=== PATIENT | female | born 1950 | race Hispanic/Latino ===

== ENCOUNTER 2017-01-06 16:04 | Emergency (ER) | payer MEDICARE ==
[2017-01-06 16:28] VITALS: BP 107/65; PULSE 73; RESP 18; TEMP 97.7; O2SAT 96
--- NOTE | 2017-01-06 16:37 | ED PDOC ---
Arrival/HPI - General Chief Complaint: Trauma Time Seen by Provider: 01/06/17 16:31 Historian: Patient - History of Present Illness Narrative History of Present Illness (Text): 01/06/17 16:32 This 66 yo female presents to this ED c/o right ankle pain, right knee pain, and lower back pain x [employer]. Patient stated while walking on side way, she tripped on uneven surface, causing her to fall forward. She was able to place hands down to break fall. Denies wrist pain, elbow pain, head injury, neck pain , sob, cp, abdominal pain, dizziness, diplopia, dyasthria, syncope, hip pain, hematuria, or n/v. Time/Duration: Prior to Arrival Symptom Onset: Sudden Quality: Aching Context: Pedestrian Past Medical History - Provider Review Nursing Documentation Reviewed: Yes - Infectious Disease Hx of Infectious Diseases: None - Genitourinary/Gynecological Hx Uterine Cancer: Yes - Psychiatric Hx Substance Use: No - Surgical History Hx Appendectomy: Yes Hx Cholecystectomy: Yes Hx Hysterectomy: Yes Hx Joint Replacement: Yes (b/l knees) Family/Social History - Physician Review Nursing Documentation Reviewed: Yes Family/Social History: No Known Family HX Smoking Status: Never Smoked Hx Alcohol Use: No Hx Substance Use: No Allergies/Home Meds Allergies/Adverse Reactions: Allergies levofloxacin [From Levaquin] Allergy (Verified 01/06/17 16:20) ANAPHYLAXIS Review of Systems - Review of Systems Constitutional: Normal. absent: Fatigue, Weight Change, Fevers Eyes: Normal ENT: Normal Respiratory: Normal. absent: SOB, Cough Cardiovascular: Normal. absent: Chest Pain, Palpitations Gastrointestinal: Normal. absent: Abdominal Pain, Nausea, Vomiting Genitourinary Female: Normal. absent: Hematuria Musculoskeletal: Back Pain, Other (See HPI) Skin: Normal, Other (small scattered abraion lower extremity). absent: Laceration Neurological: Normal Endocrine: Normal Hemo/Lymphatic: Normal Psychiatric: Normal Physical Exam Vital Signs Temp Pulse Resp BP Pulse Ox 01/06/17 16:10 97.7 F 73 18 107/65 96 Temperature: Afebrile Blood Pressure: Normal Pulse: Regular Respiratory Rate: Normal Appearance: Positive for: Well-Appearing, Non-Toxic, Comfortable Pain Distress: None Mental Status: Positive for: Alert and Oriented X 3 - Systems Exam Head: Present: Atraumatic, Normocephalic Pupils: Present: PERRL Extroacular Muscles: Present: EOMI Conjunctiva: Present: Normal Mouth: Present: Moist Mucous Membranes Neck: Present: Normal Range of Motion Respiratory/Chest: Present: Clear to Auscultation, Good Air Exchange. No: Respiratory Distress, Accessory Muscle Use Cardiovascular: Present: Regular Rate and Rhythm, Normal S1, S2. No: Murmurs Abdomen: Present: Normal Bowel Sounds. No: Tenderness, Distention, Peritoneal Signs Back: Present: Normal Inspection Upper Extremity: Present: Normal Inspection, Normal ROM, NORMAL PULSES, Neurovascularly Intact, Capillary Refill < 2s. No: Cyanosis, Edema Lower Extremity: Present: NORMAL PULSES, Tenderness ((+) mild right anterior ankle joint swelling, and mild tendernes. No deformity, Drawer test was negative. Tobar test was negative.), Swelling, Neurovascularly Intact, Capillary Refill < 2 s. No: Edema, CALF TENDERNESS, Cecilio's Sign, Erythema, Deformity, Temperature Abnormalties Neurological: Present: GCS=15, CN II-XII Intact, Speech Normal Skin: Present: Warm, Dry, Normal Color. No: Rashes Psychiatric: Present: Alert, Oriented x 3, Normal Insight, Normal Concentration Medical Decision Making ED Course and Treatment: 01/06/17 17:40 Re-evaluation. Patient feels better. Discussed results and plan with patient who expresses understanding. All questions answered and there is agreement with the plan to discharge home with instructions. Patient stable for discharge. Return if symptoms persist or worsen Re-evaluation Time: 17:40 Reassessment Condition: Re-examined, Improved - RAD Interpretation Narrative RAD Interpretations (Text): 01/06/17 17:45 Ankle x-rays: DJD. No Fx or sublux. Tib Fib X-rays: No Fx or sublux. knee x-rays: No fx or sublux. (+) DJD Radiology Orders: 01/06/17 16:32 ANKLE RIGHT 3 VIEWS ROUTINE [RAD] Stat 01/06/17 16:33 KNEES BILATERAL [RAD] Stat TIBIA FIBULA RIGHT [RAD] Stat 01/06/17 16:38 LS SPINE WITH OBL > 18 YRS OLD [RAD] Stat - Medication Orders Current Medication Orders: Discontinued Medications Ibuprofen (Motrin Tab) 800 mg PO STAT STA Stop: 01/06/17 16:38 Last Admin: 01/06/17 16:45 Dose: 800 mg Tetanus/Reduced Diphtheria/Acell Pertussis (Boostrix Vaccine Inj) 0.5 ml IM .ONCE ONE Stop: 01/06/17 16:45 Disposition/Present on Arrival - Present on Arrival Any Indicators Present on Arrival: No History of DVT/PE: No History of Uncontrolled Diabetes: No Urinary Catheter: No History of Decub. Ulcer: No History Surgical Site Infection Following: None - Disposition Have Diagnosis and Disposition been Completed?: Yes Diagnosis: Ankle pain, Back pain, Fall (on)(from) sidewalk curb, initial encounter, Knee pain Disposition Time: 17:40 Patient Plan: Discharge Patient Problems: Current Active Problems Problem Status Onset Ankle pain Acute Back pain Acute Fall (on)(from) sidewalk curb, initial encounter Acute Knee pain Acute Condition: GOOD Discharge Instructions (ExitCare): Arthralgia (ED), Fall Prevention (ED) Additional Instructions: Call private doctor for follow up visit in 1-2 days. Take medication as instructed. Return to emergency if symptoms worsen. Prescriptions: Ibuprofen [Motrin] 600 mg PO Q8 PRN #20 tab PRN Reason: Pain, Severe (8-10) Referrals: Arthur Galeano MD [Primary Care Provider] - Follow up with primary
[2017-01-06] MEDS ORDERED: TDAP Vaccine 0.5 mL Syr IM ONE (16:44)
--- NOTE | 2017-01-06 18:47 | RAD ---
PROCEDURE: Radiographs of the right tibia and fibula. HISTORY: pain s/p fall COMPARISON: None available. TECHNIQUE: Frontal and lateral views obtained. FINDINGS: BONES: No acute fractures. Incompletely visualize right TKA. JOINT SPACES: Unremarkable. OTHER FINDINGS: None. IMPRESSION: No acute findings related to/accounting for the clinical presentation. Concordant results with the preliminary interpretation rendered by the emergency department physician procedure.
--- NOTE | 2017-01-06 18:49 | RAD ---
PROCEDURE: Radiographs of the Lumbar Spine. HISTORY: right sided back pain COMPARISON: No prior. FINDINGS: BONES: Scoliosis, secondary degenerative change at multiple levels. . No listhesis. No fracture. DISC SPACES: Mild multilevel degenerative changes. OTHER FINDINGS: Vascular calcifications in the retroperitoneum pelvis. IMPRESSION: No acute findings related to/accounting for the clinical presentation. Concordant results with the preliminary interpretation rendered by the emergency department physician procedure.
--- NOTE | 2017-01-06 18:51 | RAD ---
PROCEDURE: Bilateral Knee Radiographs. HISTORY: pain s/p fall COMPARISON: None. FINDINGS: BONES: Right Knee: Satisfactory position alignment of components of right TKA. No evidence set of prosthetic loosening. Left Knee: No acute fracture. Proliferative hypertrophic changes emanating from the femoral condyle and tibial plateau JOINTS: Right Knee: Satisfactory postoperative status. Left knee: Mild medial compartment narrowing. Relative sparing of patellofemoral joint and lateral compartment. SOFT TISSUES: Right Knee: Normal. Left Knee: Normal. JOINT EFFUSION: Right Knee: None. Left Knee: None. OTHER FINDINGS: None. IMPRESSION: No acute findings related to/accounting for the clinical presentation. Concordant results with the preliminary interpretation rendered by the emergency department physician procedure.
--- NOTE | 2017-01-06 18:51 | RAD ---
PROCEDURE: Right Ankle Radiographs. HISTORY: Posttraumatic pain COMPARISON: None FINDINGS: BONES: Negative study for acute fracture. Plantar and Achilles Tendon insertion calcaneal spurs. JOINTS: Normal. No osteoarthritis. Ankle mortise maintained. Talar dome intact SOFT TISSUES: Normal. OTHER FINDINGS: None. IMPRESSION: No acute findings related to/accounting for the clinical presentation. Concordant results with the preliminary interpretation rendered by the emergency department physician procedure.
== END 2017-01-06 18:30 | disposition home or self-care (01) ==
LOC: ED 16:04
DX: M54.9 Dorsalgia, unspecified (principal); M25.571 Pain in right ankle and joints of right foot; M25.561 Pain in right knee; Z23 Encounter for immunization

== ENCOUNTER 2017-04-04 08:12 | Day surgery (SDC) | payer MEDICARE ==
[2017-03-28 13:20] VITALS: BMI 27.8
[2017-04-04] MEDS ORDERED: Propofol 10 mg/ml Inj (20 ML) ONE (09:47)
[2017-04-04] MEDS ORDERED: Atropine 0.4 mg/ml Inj (1 mL) ONE (09:47)
[2017-04-04] MEDS ORDERED: Sodium Chloride 0.9% 1,000 ML IV SCH (10:30)
[2017-04-04 12:03] VITALS: RESP 16; TEMP 97.6
[2017-04-04 12:04] VITALS: BP 120/78; PULSE 67; O2SAT 99
== END 2017-04-04 11:41 | disposition home or self-care (01) ==
LOC: ENDO 08:12
PROVIDERS: ATTEND Internal Medicine Gastroenterology
DX: D12.8 Benign neoplasm of rectum (principal); K57.30 Diverticulosis of large intestine without perforation or abscess without bleeding; K56.2 Volvulus; K64.8 Other hemorrhoids
CPT/HCPCS: 45385; 88305; J0461; J2001; J2405; J2704; J7040 ×2

== ENCOUNTER 2017-12-08 09:56 | Emergency (ER) | payer MEDICARE ==
[2017-12-08 09:59] VITALS: BMI 28.3
[2017-12-08] MEDS ORDERED: Sodium Chloride 0.9% 1,000 ML IV STA (10:21)
--- NOTE | 2017-12-08 10:22 | ED PDOC ---
Arrival/HPI - General Time Seen by Provider: 12/08/17 10:16 Historian: Patient - History of Present Illness Narrative History of Present Illness (Text): 12/08/17 10:26 A 67 year old female, whose past medical history includes, presents to the emergency department complaining of exertional dyspnea for 1 week. Patient reports symptom progressed into chest tightness and right shoulder pain. Symptoms gradually becoming more intense. Patient denies any recent travel. mentions no other complaints at this time. Also, patient notes she is allergic to Leviquin and steroids; and denies any history of smoking. Patient mentions having few surgeries in the past. No PMD Past Medical History - Provider Review Nursing Documentation Reviewed: Yes - Infectious Disease Hx of Infectious Diseases: None - Cardiac Hx Pacemaker: No - Neurological Hx Paralysis: No - Hematological/Oncological Hx Blood Transfusions: No Hx Blood Transfusion Reaction: No - Musculoskeletal/Rheumatological Hx Musculoskeletal Disorders: Yes - Genitourinary/Gynecological Hx Uterine Cancer: Yes - Psychiatric Hx Emotional Abuse: No Hx Physical Abuse: No Hx Substance Use: No - Surgical History Hx Appendectomy: Yes Hx Cholecystectomy: Yes Hx Hysterectomy: Yes Hx Joint Replacement: Yes (b/l knees) - Anesthesia Hx Anesthesia Reactions: Yes (NAUSEA) Hx Malignant Hyperthermia: No - Suicidal Assessment Feels Threatened In Home Enviroment: No Family/Social History - Physician Review Nursing Documentation Reviewed: Yes Family/Social History: No Known Family HX Smoking Status: Never Smoked Hx Alcohol Use: No Hx Substance Use: No Allergies/Home Meds Allergies/Adverse Reactions: Allergies levofloxacin [From Levaquin] Allergy (Verified 12/08/17 10:40) ANAPHYLAXIS PER PT- HER JOINTS STIFFEN/LOCK QUICKLY Home Medications: Home Meds Medication Instructions Recorded Confirmed Ibuprofen [Motrin] 800 mg PO PRN PRN 03/28/17 12/08/17 Review of Systems - Physician Review All systems were reviewed & negative as marked: Yes - Review of Systems Cardiovascular: Chest Pain (chest tightness; progressed from dyspnea), Other ( dyspnea) Musculoskeletal: Other (right shoulder pain which progressed from dyspnea) Physical Exam Vital Signs Temp Pulse Resp BP Pulse Ox 12/08/17 16:05 67 16 112/68 95 12/08/17 14:00 66 18 118/77 99 12/08/17 12:35 65 18 116/64 98 12/08/17 11:22 64 18 118/65 98 12/08/17 10:30 98 F 66 18 122/61 96 Mental Status: Positive for: Alert and Oriented X 3 - Systems Exam Head: Present: Atraumatic, Normocephalic Pupils: Present: PERRL Extroacular Muscles: Present: EOMI Conjunctiva: Present: Normal Mouth: Present: Moist Mucous Membranes Neck: Present: Normal Range of Motion Respiratory/Chest: Present: Clear to Auscultation, Good Air Exchange. No: Respiratory Distress, Accessory Muscle Use Cardiovascular: Present: Regular Rate and Rhythm, Normal S1, S2. No: Murmurs Abdomen: No: Tenderness, Distention, Peritoneal Signs Back: Present: Normal Inspection Upper Extremity: Present: Normal Inspection. No: Cyanosis, Edema Lower Extremity: Present: Normal Inspection. No: Edema Neurological: Present: GCS=15, CN II-XII Intact, Speech Normal Skin: Present: Warm, Dry, Normal Color. No: Rashes Psychiatric: Present: Alert, Oriented x 3, Normal Insight, Normal Concentration Medical Decision Making ED Course and Treatment: 12/08/17 10:28 Impression: 67 year old female with dyspnea that has progressed into chest tightness and right shoulder pain. No acute findings on physical exam. Plan: -- EKG -- Angio Chest CT -- Chest X-ray -- Labs -- Toradol -- Ativan -- IV Fluids -- Reassess and disposition Progress Notes: EKG: Ordered, reviewed, and independently interpreted the EKG. Rate : 71 BPM Rhythm : NSR Interpretation : No ST-segment elevations or depressions, no T-wave inversions, normal intervals. Comparison : No previous EKG for comparison. 12/08/2017 13:[address] IMPRESSION: Unremarkable CT pulmonary angiogram. No pulmonary embolus. Dictator: Nando Hein MD 12/08/2017 13:48 Chest X-ray IMPRESSION: No active disease. Dictator: Nando Hein MD 12/08/17 15:37 Repeat EKG: Ordered, reviewed, and independently interpreted the EKG. Rate : 66 BPM Rhythm : NSR Interpretation : No ST-segment elevations or depressions, no T-wave inversions, normal intervals. Comparison : No previous EKG for comparison. - Lab Interpretations Lab Results: 12/08/17 11:36 12/08/17 11:36 Lab Results 12/08/17 15:38: Lactate Dehydrogenase 474, Total Creatine Kinase 60, Troponin I < 0.01 12/08/17 11:36: Sodium 145, Potassium 4.4, Chloride 110 H, Carbon Dioxide 26, Anion Gap 14, BUN 14, Creatinine 0.7, Est GFR ( Amer) > 60, Est GFR (Non- Af Amer) > 60, Random Glucose 94, Calcium 8.7, Total Bilirubin 0.7, AST 26, ALT 27, Alkaline Phosphatase 59, Lactate Dehydrogenase 459, Total Creatine Kinase 55 , Troponin I < 0.01, Total Protein 6.5, Albumin 3.9, Globulin 2.5, Albumin/ Globulin Ratio 1.5 12/08/17 11:36: PT 11.2, INR 0.97 12/08/17 11:36: WBC 5.0, RBC 4.14, Hgb 12.6, Hct 36.8, MCV 88.9, MCH 30.4, MCHC 34.2, RDW 12.8, Plt Count 189, MPV 8.5, Gran % 63.3, Lymph % (Auto) 27.5, [place] % (Auto) 5.6, Eos % (Auto) 3.4, Baso % (Auto) 0.2, Gran # 3.17, Lymph # (Auto) 1.4, [place] # (Auto) 0.3, Eos # (Auto) 0.2, Baso # (Auto) 0.01 I have reviewed the lab results: Yes - RAD Interpretation Radiology Orders: 12/08/17 10:21 ANGIO CHEST PE PROTOCOL [CT] Stat CHEST PORTABLE [RAD] Stat - Medication Orders Current Medication Orders: Discontinued Medications Sodium Chloride (Sodium Chloride 0.9%) 1,000 mls @ 999 mls/hr IV .Q1H1M STA Stop: 12/08/17 11:21 Last Admin: 12/08/17 11:15 Dose: 999 mls/hr eMAR Start Stop Document 12/08/17 11:15 SYDNEY (Rec: 12/08/17 11:39 SYDNEY [id number]) Intravenous Solution Start Date 12/08/17 Start Time 11:15 End Date 12/08/17 End time 12:15 Total Infusion Time 60 Ketorolac Tromethamine (Toradol) 30 mg IVP STAT STA Stop: 12/08/17 10:22 Last Admin: 12/08/17 11:20 Dose: 30 mg MAR Pain Assessment Document 12/08/17 11:20 SZA (Rec: 12/08/17 11:38 [facility] [id number]) Pain Reassessment Is this a pain reassessment? No Sleep Is patient sleeping during reassessment? No Presence of Pain Presence of Pain Yes Pain Scale Used Pain Scale Used Numeric IVP Administration Document 12/08/17 11:20 SZA (Rec: 12/08/17 11:38 [facility] [id number]) Charges for Administration # of IVP Administrations 1 Re-Assess: MAR Pain Assessment Document 12/08/17 12:20 SZA (Rec: 12/08/17 15:42 SZA [id number]) Pain Reassessment Is this a pain reassessment? Yes Sleep Is patient sleeping during reassessment? No Presence of Pain Presence of Pain Yes Pain Scale Used Pain Scale Used Numeric Description Description Intermittent Intensity of Pain at present 2 Lorazepam (Ativan) 2 mg IVP ONCE ONE PRN Reason: Protocol Stop: 12/08/17 10:22 Last Admin: 12/08/17 11:20 Dose: 2 mg IVP Administration Document 12/08/17 11:20 SZA (Rec: 12/08/17 11:38 [facility] [id number]) Charges for Administration # of IVP Administrations 1 - Scribe Statement The provider has reviewed the documentation as recorded by the Jorgeibrafa Pena Provider Scribe Attestation: All medical record entries made by the Scribe were at my direction and personally dictated by me. I have reviewed the chart and agree that the record accurately reflects my personal performance of the history, physical exam, medical decision making, and the department course for this patient. I have also personally directed, reviewed, and agree with the discharge instructions and disposition. Disposition/Present on Arrival - Present on Arrival Any Indicators Present on Arrival: No History of DVT/PE: No History of Uncontrolled Diabetes: No Urinary Catheter: No History Surgical Site Infection Following: None - Disposition Have Diagnosis and Disposition been Completed?: Yes Diagnosis: Chest pain, atypical Disposition: HOME/ ROUTINE Disposition Time: 16:31 Patient Plan: Discharge Condition: GOOD Discharge Instructions (ExitCare): Chest Pain (ED) Additional Instructions: Macey, All your test results were good. No Heart Attack, No Blood Clots. This is atypical acosta and needs follow up with your primary care doctor and they may order a stress test or follow up with a guitar player. Return to us if any problems whatsoever. Best- Dr. Sumeet Nicholson
[2017-12-08 10:40] VITALS: TEMP 98
[2017-12-08 11:41] LABS: BASO # 0.01 K/mm3 (0.0-2.0); BASO % 0.2 % (0.0-3.0); EOS # 0.2 (0.0-0.7); EOS % 3.4 % (1.5-5.0); GRAN # 3.17 (1.4-6.5); GRAN % 63.3 % (50.0-68.0); HEMOGLOBIN 12.6 g/dL (12.0-16.0); LYMPH # 1.4 (1.2-3.4); LYMPH % 27.5 % (22.0-35.0); MEAN CELL VOLUME 88.9 fl (80.0-105.0); MEAN CORPUSCULAR HEMOGLOBIN 30.4 pg (25.0-35.0); MEAN CORPUSCULAR HGB CONC 34.2 g/dl (31.0-37.0); MEAN PLATELET VOLUME 8.5 fl (7.0-11.0); MONO # 0.3 (0.1-0.6); MONO % 5.6 % (1.0-6.0); RBC 4.14 10^6/uL (3.5-6.1); RED CELL DISTRIBUTION WIDTH 12.8 % (11.5-14.5)
[2017-12-08 11:50] LABS: INR 0.97 (0.93-1.08); PROTHROMBIN TIME 11.2 SECONDS (9.4-12.5)
[2017-12-08 11:51] LABS: ALB/GLOB RATIO 1.5 (1.1-1.8); ALBUMIN 3.9 g/dL (3.0-4.8); ALT/SGPT 27 U/L (7-56); AST/SGOT 26 U/L (14-36); BLOOD UREA NITROGEN 14 mg/dL (7-21); CALCIUM 8.7 mg/dL (8.4-10.5); GFR AFRICAN-AMERICAN > 60; GFR NON-AFRICAN AMERICAN > 60
[2017-12-08] MEDS ORDERED: Iohexol 350 MG/100 ML VIAL ONE (12:06)
[2017-12-08 12:09] LABS: TROPONIN I < 0.01 ng/mL
--- NOTE | 2017-12-08 13:14 | CT ---
PROCEDURE: CT Chest with contrast (Pulmonary Angiogram) HISTORY: Possible PE COMPARISON: None available. TECHNIQUE: Axial computed tomography images were obtained of the chest in the pulmonary arterial phase of enhancement. Coronal and sagittal reformatted images were created and reviewed. Intravenous contrast dose: 100 cc of Omni 350 Radiation dose: Total exam DLP = 440 mGy-cm. This CT exam was performed using one or more of the following dose reduction techniques: Automated exposure control, adjustment of the mA and/or kV according to patient size, and/or use of iterative reconstruction technique. FINDINGS: PULMONARY ARTERIES: Unremarkable. No pulmonary embolism. AORTA: No acute findings. No thoracic aortic aneurysm. LUNGS: Unremarkable. No nodule, mass or pulmonary consolidation. PLEURAL SPACES: Unremarkable. No effusion or pneuomothorax. HEART: Unremarkable. No cardiomegaly. No significant pericardial effusion. LYMPH NODES: No lymphadenopathy. BONES, CHEST WALL: Unremarkable. No fracture or destructive lesion OTHER FINDINGS: Gallbladder removed IMPRESSION: Unremarkable CT pulmonary angiogram. No pulmonary embolus.
--- NOTE | 2017-12-08 13:50 | RAD ---
HISTORY: chest "tightness" COMPARISON: No prior. FINDINGS: LUNGS: No active pulmonary disease. PLEURA: No significant pleural effusion identified, no pneumothorax apparent. CARDIOVASCULAR: Normal. OSSEOUS STRUCTURES: No significant abnormalities. VISUALIZED UPPER ABDOMEN: Normal. OTHER FINDINGS: None. IMPRESSION: No active disease.
[2017-12-08 16:06] VITALS: BP 112/68; PULSE 67; RESP 16; O2SAT 95
[2017-12-08 16:07] LABS: TROPONIN I < 0.01 ng/mL
--- NOTE | 2017-12-08 16:41 | CARD ---
APPROVED REPORT EKG Measurement Heart [id number] [id number] <Conclusion> Normal sinus rhythm Normal ECG
--- NOTE | 2017-12-08 22:27 | CARD ---
APPROVED REPORT EKG Measurement Heart [id number] <Conclusion> Normal sinus rhythm Normal ECG
== END 2017-12-08 16:46 | disposition home or self-care (01) ==
LOC: ED 09:56
DX: R07.89 Other chest pain (principal)
CPT/HCPCS: 71045; 71275; 80053; 82550; 83615; 84484; 85025; 85610; 93005; 96361; 96374; 96375; 99285; J1885; J2060; J7040; Q9967

== ENCOUNTER 2018-01-14 07:09 | Day surgery (SDC) | payer MEDICARE ==
[2018-01-12 14:17] VITALS: BMI 27.3
[2018-01-14] MEDS ORDERED: Lidocaine 2% Inj (20ml) ONE (09:05)
[2018-01-14] MEDS ORDERED: Iohexol 350mgl/ml 50 ML ONE (09:05)
[2018-01-14] MEDS ORDERED: Iohexol 350 MG/100 ML VIAL ONE (09:05)
[2018-01-14] MEDS ORDERED: Midazolam 2 MG/2 ML VIAL ONE (09:21)
[2018-01-14] MEDS ORDERED: Sodium Chloride 0.9% 1,000 ML IV SCH (10:00)
[2018-01-14 10:34] VITALS: TEMP 97.4
[2018-01-14 11:03] VITALS: RESP 18; O2SAT 96
[2018-01-14 13:31] VITALS: BP 108/66; PULSE 56
--- NOTE | 2018-01-14 15:59 | CARDCATH ---
PROCEDURE DATE: 01/14/2018 PROCEDURES: 1. Selective left and right coronary angiography. 2. Left ventriculography. 3. Right femoral arteriography. 4. Mynx deployment. HISTORY: This is a 67-year-old woman with a history of hyperlipidemia and a family history of premature heart disease, who has had progressive chest discomfort. The stress test showed no clear ischemia, but given her risk factors and symptoms, cardiac catheterization was advised. INDICATIONS: Persistent chest pain, multiple cardiac risk factors. FINDINGS: HEMODYNAMICS: The aortic pressure was 106/70 with a left ventricular pressure of 106/8. CORONARY ANATOMY: 1. The left main was short, but normal. 2. Left anterior descending artery and its branches were normal as well. 3. Left circumflex artery and its branches were also normal. 4. The right coronary artery was dominant and normal. LEFT VENTRICULOGRAPHY: A left ventriculogram was performed in the DILLON projection with hand injection only. This revealed normal wall motion with an ejection fraction of 60%. There is no aortic valve gradient noted on catheter pullback. Mitral regurgitation was not assessed. CONCLUSIONS: 1. Normal coronary arteries. 2. Normal left ventricular function. 3. Noncardiac chest pain. RECOMMENDATIONS: Continued risk factor modification is advised and a workup for noncardiac causes of chest pain can be entertained. Andrzej Quick MD cc: Austin Traylor MD MTDD
== END 2018-01-14 13:15 | disposition home or self-care (01) ==
LOC: CATH 07:09
PROVIDERS: ATTEND Internal Medicine Cardiovascular Disease
DX: R07.89 Other chest pain (principal); E78.5 Hyperlipidemia, unspecified; Z82.49 Family history of ischemic heart disease and other diseases of the circulatory system
CPT/HCPCS: 36415; 86850; 86900; 93458; 99152; C1760; C1769; C1894; J1644; J2250; J2405; J3010; J7030; J7040; Q9967

== ENCOUNTER 2018-02-05 09:04 | Day surgery (SDC) | payer MEDICARE ==
[2018-01-12 14:17] VITALS: BMI 27.3
[2018-02-05] MEDS ORDERED: Propofol 10 mg/ml Inj (20 ML) ONE (09:40)
[2018-02-05] MEDS ORDERED: Sodium Chloride 0.9% 1,000 ML IV SCH (10:15)
[2018-02-05 11:09] VITALS: BP 111/65; PULSE 55; RESP 18; TEMP 97.8; O2SAT 99
== END 2018-02-05 11:20 | disposition home or self-care (01) ==
LOC: ENDO 09:04
PROVIDERS: ATTEND Internal Medicine Gastroenterology
DX: K25.9 Gastric ulcer, unspecified as acute or chronic, without hemorrhage or perforation (principal); K29.80 Duodenitis without bleeding; K21.9 Gastro-esophageal reflux disease without esophagitis; K29.50 Unspecified chronic gastritis without bleeding
CPT/HCPCS: 43239; 88305; 88342; J2704; J7030 ×2

== ENCOUNTER 2018-05-15 08:52 | Day surgery (SDC) | payer MEDICARE ==
[2018-01-12 14:17] VITALS: BMI 27.3
[2018-05-15] MEDS ORDERED: Propofol 10 mg/ml Inj (20 ML) ONE (10:08)
[2018-05-15] MEDS ORDERED: Sodium Chloride 0.9% 1,000 ML IV SCH (10:45)
[2018-05-15 13:53] VITALS: BP 111/65; PULSE 57; RESP 16; TEMP 97.8; O2SAT 100
== END 2018-05-15 12:13 | disposition home or self-care (01) ==
LOC: ENDO 08:52
PROVIDERS: ATTEND Internal Medicine Gastroenterology
DX: K25.7 Chronic gastric ulcer without hemorrhage or perforation (principal); K31.7 Polyp of stomach and duodenum; K31.9 Disease of stomach and duodenum, unspecified; Z88.1 Allergy status to other antibiotic agents; Z86.010 Personal history of colon polyps; Z90.49 Acquired absence of other specified parts of digestive tract; K59.00 Constipation, unspecified; Z85.42 Personal history of malignant neoplasm of other parts of uterus; Z90.710 Acquired absence of both cervix and uterus; Z96.653 Presence of artificial knee joint, bilateral; R07.89 Other chest pain; K57.30 Diverticulosis of large intestine without perforation or abscess without bleeding; K29.50 Unspecified chronic gastritis without bleeding; Z87.19 Personal history of other diseases of the digestive system
CPT/HCPCS: 43239; 88305; 88342; J2001; J2704; J7030; J7040

== ENCOUNTER 2018-08-18 14:09 | Outpatient (CLI) | payer MEDICARE | END 2018-08-18 14:10 | disposition home or self-care (01) | LOC: RAD 14:09 ==